=== PATIENT | male | born 1995 | race Caucasian/White ===

== ENCOUNTER 2018-05-15 11:58 | Observation (INO) | payer OTHER ==
[~2018-05-15] VITALS: Ht 180.3 cm; Wt 72.4 kg
[~2018-05-15 11:58] MED LIST: CEFAZOLIN 1,000 MG ONE; DEXAMETHASONE 4 MG/ML, 1ML ONE; KETAMINE 10 MG/ML, 20ML ONE; KETOROLAC 30 MG/1 ML ONE; ONDANSETRON 2MG/ML, 2ML ONE; PROPOFOL 10 MG/ML, 20ML ONE; ROCURONIUM 10MG/ML,5ML ONE
[2018-05-15] MEDS ORDERED: LACTATED RINGERS 1,000 ML IV SCH ×4 (12:17→20:30)
[2018-05-15 12:38] VITALS: BP 123/81
[2018-05-15] MEDS ORDERED: FLUV25TA2 PO (12:49)
[2018-05-15] MEDS ORDERED: FENTANYL PF 250 MCG/5ML ONE (13:27)
[2018-05-15] MEDS ORDERED: MIDAZOLAM 1 MG/ML, 2ML ONE (13:27)
[2018-05-15] MEDS ORDERED: BUPIVACAINE/PF 0.5% ONE (14:10)
[2018-05-15] MEDS ORDERED: MEPERIDINE/PF 25MG/0.5ML IVPush PRN (16:00)
[2018-05-15] MEDS ORDERED: PROMETHAZINE 25 MG/ML, 1ML IV PRN (16:00)
[2018-05-15] MEDS ORDERED: OXYcodone 5 MG/5 ML ORAL.SOL UDC PO PRN (16:00)
[2018-05-15] MEDS ORDERED: HALOPERIDOL 5 MG/ML IV PRN (16:00)
[2018-05-15] MEDS ORDERED: ACETAMINOPHEN 325 MG TABLET PO PRN (16:00)
[2018-05-15] MEDS ORDERED: MEPERIDINE/PF 50 MG/ML ONE (16:23)
[2018-05-15] MEDS ORDERED: OXYcodone 5 MG/5 ML ORAL.SOL UDC ONE (17:47)
[2018-05-15] MEDS ORDERED: FENTANYL PF 100 MCG/2ML ONE ×2 (17:47→18:21)
[2018-05-15] MEDS ORDERED: ACETAMINOPHEN 650 MG/20.3 ML UDC ONE (17:48)
[2018-05-15] MEDS: FENTANYL PF 100 MCG/2ML IV PRN ×4 (17:53→18:40)
[2018-05-15] MEDS ORDERED: HYDROmorphone 1 MG/ML, 1ML AMP ONE ×2 (17:54→18:21)
[2018-05-15] MEDS: HYDROmorphone 2 MG/ML, 1ML IVPush PRN ×7 (17:57→19:10)
[2018-05-15] MEDS ORDERED: morphine SULFATE 10 MG/ML, 1ML IV PRN (20:30)
[2018-05-15] MEDS ORDERED: OXYcodone/APAP 5/325MG TABLET PO PRN (20:30)
[2018-05-15] MEDS ORDERED: KETOROLAC 30 MG/1 ML IV SCH (20:30)
[2018-05-15] MEDS ORDERED: PROMETHAZINE 25 MG/ML, 1ML IM PRN (20:30)
[2018-05-15] MEDS ORDERED: ONDANSETRON 2MG/ML, 2ML IV PRN (20:30)
[2018-05-16] MEDS ORDERED: FLUVOXAMINE 50MG TABLET PO SCH (09:00)
== END 2018-05-15 22:00 | disposition home or self-care (01) ==
LOC: OR 11:58 → 4NOR 19:40 → OUT 19:51
PROVIDERS: ADMIT Orthopaedic Surgery; ATTEND Orthopaedic Surgery
DX: S52.572A Other intraarticular fracture of lower end of left radius, initial encounter for closed fracture (principal); X58.XXXA Exposure to other specified factors, initial encounter; Y93.89 Activity, other specified; Y92.89 Other specified places as the place of occurrence of the external cause; Y99.8 Other external cause status
CPT/HCPCS: 25608; 73100; 76000; C1713; C1762; G0378; J0690; J1100; J1170; J1885; J2175; J2250; J2405; J2704; J3010; J3490; J7120